=== PATIENT | female | born 1970 | race Caucasian/White ===

== ENCOUNTER 2019-09-16 07:13 | Inpatient (IN) | payer MEDICAID ==
[~2019-09-16 07:13] MED LIST: Bupivacaine 0.5% 50 ML MDV ONE; Lidocaine 1% with EPINEPHrine 1:100,000 50 ML MDV ONE
[2019-09-16] MEDS ORDERED: Naloxone 0.4 MG/ML SDV IVPUSH PRN (07:17)
[2019-09-16] MEDS ORDERED: Naloxone 0.4 MG/ML SDV IV PRN (07:24)
[2019-09-16] MEDS ORDERED: Albuterol/Ipratropium 3.0-0.5 MG/3 ML Neb Soln NEB ONE (07:30)
[2019-09-16] MEDS ORDERED: Acetaminophen 500 MG Tab PO ONE (07:30)
[2019-09-16] MEDS ORDERED: Scopolamine 1.5 MG Transdermal Patch TOP ONE (07:30)
[2019-09-16] MEDS ORDERED: cefOXitin 2 GM in Sodium Chloride 0.9% 50 ML IV ONE (07:30)
[2019-09-16] MEDS ORDERED: Dextrose 5%-Lactated Ringers 1,000 ML IV SCH (07:30)
[2019-09-16] MEDS ORDERED: Dexamethasone 4 MG/ML SDV ONE (08:20)
[2019-09-16] MEDS ORDERED: Rocuronium 50 MG/5 ML Vial ONE ×2 (08:20→10:54)
[2019-09-16] MEDS ORDERED: Ondansetron 4 MG/2 ML SDV ONE (08:20)
[2019-09-16] MEDS ORDERED: Glycopyrrolate 0.2 MG/ML 5 ML MDV ONE (08:20)
[2019-09-16] MEDS ORDERED: Propofol 200 MG/20 ML SDV ONE (08:20)
[2019-09-16] MEDS ORDERED: Neostigmine Methylsulfate 1 MG/ML 5 ML Syringe ONE (08:20)
[2019-09-16] MEDS ORDERED: Succinylcholine 200 MG/10 ML MDV ONE (08:20)
[2019-09-16] MEDS ORDERED: fentaNYL 250 MCG/5 ML SDV ONE ×2 (08:21→09:51)
[2019-09-16] MEDS ORDERED: levETIRAcetam 250 MG Tab PO ONE (08:30)
[2019-09-16] MEDS ORDERED: Magnesium Sulfate 3.5 GM in Sodium Chloride 0.9% 100 ML IV SCH (09:00)
[2019-09-16] MEDS ORDERED: Lactated Ringers 1,000 ML ONE (09:00)
[2019-09-16] MEDS ORDERED: Ketamine 50 MG in Sodium Chloride 0.9% 49.5 ML IV SCH (09:00)
[2019-09-16] MEDS ORDERED: Ketamine 500 MG/5 ML MDV IV SCH (09:00)
[2019-09-16] MEDS ORDERED: SODIUM CHLORIDE 0.9% IV ONE (09:30)
[2019-09-16] MEDS ORDERED: MAGNESIUM SULFATE IV ONE (09:30)
[2019-09-16] MEDS ORDERED: Meropenem 500 MG SDV ONE (09:49)
[2019-09-16] MEDS: HYDROmorphone/Normal Saline 15 MG/30 ML PCA IV PRN (12:28)
[2019-09-16] MEDS ORDERED: hydrOXYzine HCL 100 MG/2 ML SDV IM ONE (12:44)
[2019-09-16] MEDS ORDERED: Cyclobenzaprine 10 MG Tab PO PRN ×2 (13:56→14:13)
[2019-09-16] MEDS ORDERED: Albuterol/Ipratropium 3.0-0.5 MG/3 ML Neb Soln INH PRN (14:13)
[2019-09-16] MEDS ORDERED: Calcium Gluconate 10% 1 GM/10 ML SDV IVPUSH PRN (14:13)
[2019-09-16] MEDS ORDERED: SCOPOLAMINE PATCH CHECK TOP SCH (14:13)
[2019-09-16] MEDS ORDERED: Ondansetron 4 MG/2 ML SDV IVPUSH PRN (14:13)
[2019-09-16] MEDS ORDERED: Acetaminophen 500 MG Tab PO PRN (14:13)
[2019-09-16] MEDS ORDERED: diphenhydrAMINE 50 MG/ML SDV IVPUSH PRN (14:13)
[2019-09-16] MEDS ORDERED: Labetalol 20 MG/4 ML Syringe IVPUSH PRN (14:13)
[2019-09-16] MEDS ORDERED: hydrOXYzine HCL 100 MG/2 ML SDV IM PRN (14:13)
[2019-09-16] MEDS ORDERED: Metoclopramide 10 MG/2 ML SDV IVPUSH PRN (14:13)
[2019-09-16] MEDS ORDERED: MVI, Adult with Vitamin K 10 ML, Thiamine 200 MG, Chromium/Copper/Mang/Selen/Zn 1 ML in... IV SCH ×4 (16:00)
[2019-09-16] MEDS ORDERED: Lactated Ringers 500 ML IV ONE (16:06)
[2019-09-16] MEDS: Albuterol/Ipratropium 3.0-0.5 MG/3 ML Neb Soln INH SCH ×2 (16:10→20:34)
[2019-09-16] MEDS: Tranexamic Acid 1,000 MG in Sodium Chloride 0.9% 50 ML IV SCH ×2 (16:39→19:21)
[2019-09-16] MEDS: Acetaminophen 500 MG Tab PO SCH (16:57)
[2019-09-16] MEDS ORDERED: Pantoprazole 40 MG Vial IVPUSH SCH (18:00)
[2019-09-16] MEDS: cefOXitin 2 GM in Sodium Chloride 0.9% 50 ML IV SCH (18:23)
[2019-09-16] MEDS ORDERED: Heparin Sodium 5,000 Units/ML Vial SUBCUT SCH (20:00)
[2019-09-16] MEDS: Gabapentin 250 MG/5 ML Solution ML 470 ML Bottle PO SCH (20:34)
[2019-09-16] MEDS: levETIRAcetam 250 MG Tab PO SCH (20:34)
[2019-09-16] MEDS: Dextrose 5%-Lactated Ringers 1,000 ML IV SCH (23:30)
[2019-09-17] MEDS: Acetaminophen 500 MG Tab PO SCH ×4 (00:27→23:36)
[2019-09-17] MEDS: cefOXitin 2 GM in Sodium Chloride 0.9% 50 ML IV SCH ×5 (00:27→23:37)
[2019-09-17] MEDS ORDERED: Iopamidol 612 MG/ML 50 ML SDV PO ONE (04:24)
[2019-09-17] MEDS: Dextrose 5%-Lactated Ringers 1,000 ML IV SCH ×3 (05:12→11:11)
[2019-09-17] MEDS: Levothyroxine 100 MCG Tab PO SCH (08:26)
[2019-09-17] MEDS: Albuterol/Ipratropium 3.0-0.5 MG/3 ML Neb Soln INH SCH ×4 (08:26→21:16)
[2019-09-17] MEDS: levETIRAcetam 250 MG Tab PO SCH ×2 (08:29→21:14)
[2019-09-17] MEDS: Celecoxib 200 MG Cap PO SCH ×2 (08:29→21:14)
[2019-09-17] MEDS: Gabapentin 250 MG/5 ML Solution ML 470 ML Bottle PO SCH ×3 (08:35→21:14)
[2019-09-17] MEDS ORDERED: Pantoprazole 40 MG Vial IVPUSH SCH (09:00)
[2019-09-17] MEDS ORDERED: SODIUM FERRIC GLUCONATE CMPLEX IV ONE (10:00)
[2019-09-17] MEDS ORDERED: Sodium Ferric Gluconate Cmplex 250 MG in Sodium Chloride 0.9% 100 ML IV SCH (10:00)
[2019-09-17] MEDS ORDERED: SODIUM CHLORIDE 0.9% IV ONE (10:00)
[2019-09-17] MEDS ORDERED: Lactated Ringers 500 ML IV ONE (13:00)
[2019-09-17] MEDS: HYDROmorphone/Normal Saline 15 MG/30 ML PCA IV PRN (14:38)
[2019-09-17] MEDS: Pantoprazole 40 MG Delayed-Release Granules 1 Packet PO SCH (15:42)
[2019-09-17] MEDS: MVI, Adult with Vitamin K 10 ML, Thiamine 200 MG, Chromium/Copper/Mang/Selen/Zn 1 ML in... IV SCH ×4 (15:42)
[2019-09-18] MEDS: Dextrose 5%-Lactated Ringers 1,000 ML IV SCH ×2 (00:28→08:39)
[2019-09-18] MEDS ORDERED: Tranexamic Acid 1,000 MG in Sodium Chloride 0.9% 50 ML IV ONE ×6 (06:38→11:00)
[2019-09-18] MEDS ORDERED: Coagulation Factor VIIa Recombinant (per MCG) 2 MG Vial IVPUSH ONE ×2 (06:39→08:15)
[2019-09-18] MEDS: cefOXitin 2 GM in Sodium Chloride 0.9% 50 ML IV SCH ×2 (06:41→11:35)
[2019-09-18] MEDS: Albuterol/Ipratropium 3.0-0.5 MG/3 ML Neb Soln INH SCH ×4 (07:21→20:48)
[2019-09-18] MEDS: Levothyroxine 100 MCG Tab PO SCH (08:04)
[2019-09-18] MEDS: Acetaminophen 500 MG Tab PO SCH ×2 (08:05→16:22)
[2019-09-18] MEDS: Celecoxib 200 MG Cap PO SCH ×2 (08:05→20:48)
[2019-09-18] MEDS: levETIRAcetam 250 MG Tab PO SCH ×2 (08:06→20:49)
[2019-09-18] MEDS: Cyanocobalamin (Vitamin B12) 1,000 MCG/ML SDV IM SCH (08:06)
[2019-09-18] MEDS: Gabapentin 250 MG/5 ML Solution ML 470 ML Bottle PO SCH ×3 (08:32→20:49)
[2019-09-18] MEDS: oxyCODONE 5 MG Tab PO PRN ×3 (08:34→20:52)
[2019-09-18] MEDS ORDERED: Furosemide 20 MG/2 ML VIAL IV ONE (12:00)
[2019-09-18] MEDS ORDERED: Benzocaine/Cetylpyridinium/Menthol Lozenge MUCMEM PRN (13:06)
--- NOTE | 2019-09-18 13:57 | PN ---
DATE OF SERVICE: 09/17/2019 The patient has been afebrile with stable vital signs. Earlier postoperatively, she appeared to be doing some oozing and received 2 units of packed RBCs. Hemoglobin this morning is 9.6. The vital signs are improving. She is just mildly tachycardic with heart rate around 100 at this point and blood pressures in the 100 to 110 systolic range. This morning, the upper GI x-ray showed as things going through satisfactorily. She will begin a full liquid diet, although I should give her 1 unit of packed RBCs this morning. We can back down the IV rate a little bit later today. Recheck some labs today. Otherwise, maximize activity and work with pulmonary toilet. We will leave the Bob catheter in for today. We will watch her for urine output issues. Bay Johnson MD /[id number]
--- NOTE | 2019-09-18 13:57 | PN ---
DATE OF SERVICE: 09/18/2019 The patient has been afebrile with stable vital signs. Her hemoglobin had dropped to 7.8, sounds this may be fluid shifting. Hemodynamically, she looks much better than she did 24 hours ago with blood pressure 127/63, heart rate in the 80s, O2 sats on 2 L nasal cannula is 94%. The MASSIEL drains are fairly bloody and I suspect she so far had been doing some oozing. Otherwise, we will need to treat that issue with the addition of 2 units of packed RBCs, tranexamic acid 1 g now and then repeat it in 3 hours 2000 mg IV now. Otherwise, we will switch her over to oral pain medication. Recheck some labs in the morning if she is otherwise up and moving quite well. Bay Johnson MD /[id number]
[2019-09-18] MEDS: Pantoprazole 40 MG Delayed-Release Granules 1 Packet PO SCH (16:21)
[2019-09-18] MEDS: MVI, Adult with Vitamin K 10 ML, Thiamine 200 MG, Chromium/Copper/Mang/Selen/Zn 1 ML in... IV SCH ×4 (16:22)
[2019-09-19] MEDS: Acetaminophen 500 MG Tab PO SCH ×4 (00:28→23:16)
[2019-09-19] MEDS: Dextrose 5%-Lactated Ringers 1,000 ML IV SCH ×2 (00:28→00:49)
[2019-09-19] MEDS: oxyCODONE 5 MG Tab PO PRN ×3 (01:28→21:02)
[2019-09-19] MEDS: Melatonin 3 MG Tab PO PRN ×2 (01:29→21:01)
[2019-09-19] MEDS: Albuterol/Ipratropium 3.0-0.5 MG/3 ML Neb Soln INH SCH ×5 (06:59→20:12)
[2019-09-19] MEDS: Levothyroxine 100 MCG Tab PO SCH (07:55)
[2019-09-19] MEDS ORDERED: Furosemide 20 MG/2 ML VIAL IVPUSH ONE (08:00)
[2019-09-19] MEDS ORDERED: Potassium Chloride 10% 20 MEQ/15 ML Soln 15 ML UD Cup PO ONE (08:00)
[2019-09-19] MEDS: Celecoxib 200 MG Cap PO SCH ×3 (08:53→20:12)
[2019-09-19] MEDS: Docusate Sodium 100 MG Cap PO SCH ×3 (08:54→20:12)
[2019-09-19] MEDS: levETIRAcetam 250 MG Tab PO SCH ×3 (08:54→20:13)
[2019-09-19] MEDS: Bisacodyl 5 MG Tab PO SCH ×3 (08:54→20:12)
[2019-09-19] MEDS: Cyanocobalamin (Vitamin B12) 1,000 MCG/ML SDV IM SCH (08:54)
[2019-09-19] MEDS: Gabapentin 250 MG/5 ML Solution ML 470 ML Bottle PO SCH ×4 (09:04→20:13)
[2019-09-19] MEDS ORDERED: Sodium Ferric Gluconate Cmplex 250 MG in Sodium Chloride 0.9% 100 ML IV ONE (10:00)
--- NOTE | 2019-09-19 10:08 | CR ---
UGI Limited HISTORY: Postbariatric surgery FINDINGS: Patient swallowed water-soluble contrast. Upright views of the abdomen show no evidence of extravasation or obstruction. There are surgical drains in the upper abdomen IMPRESSION: Status post bariatric surgery No extravasation or obstruction seen
--- NOTE | 2019-09-19 10:30 | PN ---
DATE OF SERVICE: 09/19/2019 SUBJECTIVE: Ольга received 2 units of packed red blood cells yesterday. Her hemoglobin this morning is 8.4, it is up from 7.8. Potassium is 4.5. Her BNP 530. She is retaining some fluid in her extremities. Pain has been controlled. REVIEW OF SYSTEMS: Remainder of review of systems negative for any pertinent positives and negatives. OBJECTIVE: GENERAL: Ольга is a 48-year-old female. She is alert and orientated. VITAL SIGNS: TPR at 0700, 97.2; 87; 18; blood pressure 121/67. HEENT: Negative. NECK: Supple. HEART: Regular rate and rhythm. LUNGS: Clear. ABDOMEN: Dressing is shadowed. EXTREMITIES: MASSIEL drains x2 are intact. The one MASSIEL drain #2 is draining around the drain site. MASSIEL drain 1 put out 40 and MASSIEL drain put out 20. EXTREMITIES: Revealed trace peripheral edema. ASSESSMENT: Exploratory laparotomy with: 1. Total gastrectomy with Verito-en-Y reconstruction. 2. Removal of intraperitoneal mesh with adherent overlying skin. 3. Drainage of intraabdominal inflammatory fluid collection versus abscess. 4. Small bowel resection. 5. Separate enterostomy to restore small bowel Verito-en-Y anatomy. 6. Excision of large lipoma, mesenteric peritoneal surface, upper abdomen. 7. Repair of recurrent incarcerated incisional hernia. 8. Excision of ulcerated skin with layered closure. POSTOPERATIVE DIAGNOSIS: 1. Mass, anterior stomach, non assessable to endoscopy secondary to Verito-en-Y gastric bypass stricture. 2. Endoscopy secondary to Verito-en-Y gastric bypass surgery. 3. Potentially contaminated intraperitoneal mesh adherent to ulcerated skin and adjacent intraperitoneal inflammatory fluid collection versus abscess. 4. Large (12 cm) lipoma on underside of upper abdominal wall. 5. Probable recurrent intussusception at the jejunojejunostomy component reconstruction. 6. Recurrent incarcerated incisional hernia. 7. Separate ulcerated skin in lower abdomen. 8. Date of surgery: 09/16/2019. Surgeon: aBy Johnson MD. PLAN: 1. Lasix 20 mg IV today. 2. Saline lock IV. 3. KCl 40 mEq liquid 1 time only. 4. Take off Aquacel dressing. 5. May shower. 6. Replace Aquacel dressing. 7. Check CBC, CMP, mag, phos, BNP in a.m. 8. Bisacodyl/dulcolax 10 mg tablets p.o. b.i.d. Stop when the patient has a bowel movement. 9. Colace 100 mg p.o. b.i.d. 10.Good pulmonary toilet. 11.We will evaluate p.r.n. or in a.m. Sheron Estrada PA-C /[id number]
[2019-09-19] MEDS: Pantoprazole 40 MG Delayed-Release Granules 1 Packet PO SCH (16:09)
[2019-09-20] MEDS: oxyCODONE 5 MG Tab PO PRN ×2 (02:43→07:30)
[2019-09-20] MEDS: Levothyroxine 100 MCG Tab PO SCH ×2 (06:18→06:36)
[2019-09-20] MEDS: Albuterol/Ipratropium 3.0-0.5 MG/3 ML Neb Soln INH SCH (07:00)
[2019-09-20] MEDS: Acetaminophen 500 MG Tab PO SCH (07:36)
--- NOTE | 2019-09-21 08:18 | DISCH ---
ADMISSION DIAGNOSES: 1. Abdominal mass. 2. Recurrent incisional hernia with possible infected mass. 3. Verito-en-Y gastric bypass surgery in 2005. 4. Unspecified surgical malabsorption. 5. B12 deficiency. 6. Morbid obesity. 7. Anemia. 8. Clotting disorder. 9. Depression. 10.Polycystic ovary syndrome. 11.Seizure disorder. 12.Iron deficiency anemia. 13.Hypothyroidism. DISCHARGE DIAGNOSES: Exploratory laparotomy with: 1. Total gastrectomy with Verito-en-Y reconstruction. 2. Removal of intraperitoneal mesh with adherent overlying skin. 3. Drainage of intra-abdominal inflammatory fluid collection versus abscess. 4. Small bowel resection. 5. Separate enterostomy to restore small bowel Verito-en-Y anatomy. 6. Excision of large lipoma, mesenteric peritoneal surface, upper abdomen. 7. Repair of recurrent incarcerated incisional hernia. 8. Excision of ulcerated skin with layered closure. POSTOPERATIVE DIAGNOSES: 1. Mass, anterior stomach, non-assessable to endoscopy secondary to Verito-en-Y gastric bypass stricture. 2. Endoscopy secondary to Verito-en-Y gastric bypass surgery. 3. Potentially contaminated intraperitoneal mesh adherent to ulcerated skin and adjacent intraperitoneal inflammatory fluid collection versus abscess. 4. Large 12 cm lipoma on underside of the abdominal wall. 5. Probable recurrent intussusception of the jejunojejunostomy component reconstruction. 6. Recurrent incarcerated incisional hernia. 7. Separate ulcerated skin in lower abdomen. DATE OF SURGERY: 09/16/2019. SURGEON: Bay Johnson MD. HISTORY: Ольга Ocampo is a 48-year-old female who had Verito-en-Y with Bay Johnson MD, in 2005. She was last seen in the clinic following open incisional hernia repair in 2007. She has had no followup since 2007. She had been doing well until, 2 months ago, she noticed a bulge in the midline incision. Pain started last week. She was moving her bowels. No nausea or vomiting. She was seen on 07/28/2019 by Franklin Barraza MD, and was referred to Bay Johnson MD, after she was released from half-way. After preoperative evaluation, review of CT scan and past medical records, discussion of possible risks and complications, the patient wished to proceed with surgical procedure. HOSPITAL COURSE: Ольга was admitted on 09/16/2019 for above operation. Postoperatively, she did have what appeared to be some bleeding and received 2 units of packed red blood cells. Hemoglobin was 9.6 on first postop day. She was mildly tachycardic with heart rate around 100. Blood pressures were 100 to 110 systolically. Upper GI was normal. She was given an additional 1 unit of packed red blood cells. IV was decreased. Bob catheter was left in for accurate intake and output. On postop day 2, 09/18/2019, vital signs were stable. Hemoglobin did drop down to 7.8, thought to be from fluid shifting. She did look stable. Blood pressure was 127/63, heart rate 80s, O2 sats with 2 L of O2 per nasal cannula, 94%. MASSIEL drains remained bright red, and she was given 2 units of packed red blood cells and tranexamic acid 1 g now and repeated 3 hours later. She was switched to oral pain medication. She had been up moving and using her incentive spirometer. On 09/19/2019, postop day 3, hemoglobin was 8.4, potassium 4.5, and BNP of 530. She was retaining some fluid. She was given Lasix, potassium was replaced, and given bowel stimulation. On 09/20/2019, Ольга had a bowel movement. Vital signs were stable. Activity was good. Pain was controlled. Last laboratory tests showed a hemoglobin of 9.2 and hematocrit 28.6. Ольга was able to be discharged to home without any complications. While the patient was in the hospital, she received ferrous gluconate 250 mg IV piggyback on 09/17/2019 and 09/18/2019 for anemia. PHYSICAL EXAMINATION: GENERAL: Ольга Ocampo is a 48-year-old female, alert and orientated. VITAL SIGNS: 5 feet 6.93 inches, weight is 249 pounds. TPR at 0240, 97.3, 90, 16, blood pressure 109/58. HEENT: Negative. NECK: Supple. HEART: Regular rate and rhythm. LUNGS: Clear. ABDOMEN: Aquacel dressings on. MASSIEL drains are intact, but will be removed prior to discharge. EXTREMITIES: Without peripheral edema. DISPOSITION: Discharged to home. CONDITION: Stable and improving. FOLLOWUP APPOINTMENT: With Sheron Estrada PA-C, 09/26/2019 at 10:00 a.m. HOME MEDICATIONS: 1. Celebrex 200 mg oral b.i.d. #28. 2. Flexeril 10 mg q.8 hours p.r.n. muscle spasms, #30. 3. Oxycodone 5 mg every 6 hours p.r.n. pain, #28. To resume home medications Tylenol 650 mg every 8 hours, albuterol-ipratropium, DuoNeb 3 mL 3 times a day as needed, Q-Tussin DM 20 mL every 6 hours p.r.n. cough, levothyroxine 100 mcg before breakfast, melatonin 6 mg oral at bedtime, Keppra 500 mg oral twice daily. DIET: Step 2 gastric bypass diet with no cereal for 2 weeks until 10/01/2019. Drink 8 to 10 glasses of water a day. ACTIVITY: No lifting greater than 10 pounds for 6 weeks. Other activity: Walk inside your home 6 times daily. Driving: Do not drive for 1 week and while on narcotic medications. Shower/bathing: May shower. Keep operative site clean and dry. Take off Aquacel dressing on 09/23/2019. May cover lightly with gauze to prevent lorena from catching on abdominal binder. Wear abdominal binder for 6 weeks if tolerated. Notify provider if any fever, increased pain, drainage, nausea, or vomiting. SPECIAL INSTRUCTION: Use incentive spirometer 10 times every hour while awake for 1 week.
--- NOTE | 2019-09-21 13:59 | OR ---
DATE OF PROCEDURE: 09/16/2019 SURGEON: Bay Johnson MD PREOPERATIVE DIAGNOSES: 1. Mass involving antrum of stomach, which was not accessible to endoscopy, status post Verito-en-Y gastric bypass. 2. Recurrent incarcerated incisional hernia. POSTOPERATIVE DIAGNOSES: 1. Mass involving antrum of stomach, which was not accessible to endoscopy, status post Verito-en-Y gastric bypass. 2. Recurrent incarcerated incisional hernia. 3. Potentially contaminated intraperitoneal mesh adherent to underlying skin and adjacent inflammatory intraperitoneal fluid collection versus abscess. 4. Large (12 cm) lipoma on underside of upper abdominal wall, peritoneal surface. 5. Probable recurrent intussusception at jejunojejunostomy requiring reconstruction. 6. Separate ulcerated skin of lower abdomen. OPERATIVE PROCEDURES: Exploratory laparotomy with: 1. Total gastrectomy with Verito-en-Y reconstruction (53347). 2. Removal of intraperitoneal mesh with adherent overlying skin (37320). 3. Drainage of intraabdominal inflammatory fluid collection versus abscess underlying pre- existing mesh (99811). 4. Small bowel resection (74410). 5. Secondary enteroenterostomy to restore small bowel Verito-en-Y anatomy (15629). 6. Excision of large intraperitoneal lipoma underlying surface of upper abdomen (82203). 7. Repair of incarcerated recurrent incisional hernia (68266). 8. Excision of ulcerated skin of lower abdomen with layered closure (99360, 03591). ANESTHESIA: General. LEAD LAYING AND GLUING MACHINE OPERATOR: Sheron Estrada PA-C INDICATIONS FOR PROCEDURE: This is a 48-year-old presenting with some ongoing upper abdominal pain. A CT scan was obtained, which showed a recurrence of an incisional hernia above the previously placed mesh. This also showed a 2 to 3 cm mass in the antrum of the stomach. This was not accessible by endoscopic means, and rather than subject the patient to laparoscopy followed by a biopsy of the mass via a gastrotomy performed via laparoscopic approach and then potentially having to go back in, if the pathology shows this to be a neoplastic lesion, was reviewed with the patient and we decided to proceed with a simple resection of this area, status post previous Verito-en-Y gastric bypass so that will not affect her underlying GI function to any significant extent. The hernia would be repaired concurrently with mesh, depending on operative findings. A portion of the skin is densely adherent to the underlying mesh and is ulcerated, so this mesh may need to be removed if there appears to be a high likelihood that it is infected. Potential risks of the procedure including bleeding, infection, injury to underlying viscera, and possible leaks from GI tract closures were all reviewed, and the patient wishes to proceed. DETAILS OF PROCEDURE: The patient was taken to the operating room and placed in a supine position. After general endotracheal anesthesia was induced, a Bob catheter was inserted, and the abdomen was prepped. A long elliptical incision, which incorporated the area of ulcerated skin, as well as the area where the mesh was essentially adherent to the skin, was made with a vertical midline orientation. This was carried down through the skin and subcutaneous tissue. This was a polyester mesh, which was highly prone to getting infected, and based on that finding, we opted to remove the mesh. As one approached the right side of the edge of the mesh intraperitoneally and began dissection underneath this, there was some densely adhered omentum to the mesh. During the course of that dissection, a cloudy fluid collection was encountered. This would be either a sterile or a nonsterile abscess, based on the findings. This was drained and cultures were obtained. Remainder of the adhesions were then taken off the mesh with a combination of cautery and lorena and the mesh then removed from the abdominal wall, including adherent overlying skin. During the course of dissection, just above that, the hernia was encountered, and the preperitoneal fat incarcerated within that was returned back into the peritoneal cavity as it was dissected free. Underlying the upper abdomen, there was a peculiar finding of a large lipoma located on the inner peritoneal surface. This was quite large and measured around 12 cm, and this was excised and sent for histologic evaluation. At this point, attention was taken to the gastrectomy. The mass within the antrum could be palpated and was somewhat proximal to the duodenum in the range of 3 cm or so. Initially, the lesser and greater omentum, over the antrum, and then the proximal duodenum were divided with ERMIAS lorena. The duodenum was then divided with a ERMIAS curved black load, roughly 3 cm distal to the pyloric sphincter. The omental structures both in the lesser and greater curvatures were then sequentially divided with ERMIAS lorena and, at that point, there was noted to be dense inflammatory adherence to the previous Verito-en-Y anastomosis. This was partially taken down and reconstructed with lorena, as well some sutures. This anastomosis was essentially at the esophagogastric junction. Once this was completed, the remaining attachments to the total gastrectomy specimen were then taken down and that specimen delivered from the field. Inspection of the small bowel showed, at this point, the patient had a strikingly dilated jejunojejunostomy likely related to some recurrent intussusception. It was felt that this area would be best reconstructed to alleviate any symptoms that are likely associated with that. The 3 components of the jejunojejunostomy were then divided with ERMIAS lorena, as was the underlying mesentery. GI tract continuity was initially started with a [id number] enteroenterostomy between what had been the distal-most biliopancreatic limb to the proximal- most common limb. This was done with internal firing of the ERMIAS 60-mm stapler. Angles of anastomosis and mesenteric defect were approximated with some 3-0 Vicryl stitch and silk stitch respectively. The Verito-en-Y anatomy was then reconstructed with a second anastomosis between the distal-most Verito limb to the small bowel roughly 20 cm distal to the first anastomosis with the same sequence of lorena and mesenteric closure. At this point, no further major problems were noted. The abdomen was irrigated with antibiotic-containing saline solution. Fibrin sealant was placed over the area of the reconstructed Verito-en-Y anastomosis, as well as the duodenal stump. Two Dhiraj-Ledesma drains were placed, one in the left upper quadrant and taken into the area around the anastomosis between esophagogastric junction and the Verito limb; and the second over the area of the duodenal stump. The midline fascia was then approximated with a #2 Vicryl stitch, subcutaneous tissue closed with 2 layers of 3-0 and 4-0 Vicryl stitch deep, and lorena for the skin. Finally, the patient had a separate ulcerated area with a transverse orientation in the lower abdomen. This measured 6 cm and was excised. Some underlying varicose veins were then ligated with 3-0 Vicryl stitch. The incision was then closed with some 4-0 Vicryl stitch deep and then lorena for the skin. Dressing was applied. The patient was taken to the recovery room in satisfactory condition. Physician assistant inventory manager, Sheron Estrada, played an essential role in assisting in this case, helping to position the patient, retract structures as needed, as well as suturing and cutting sutures when indicated. Her presence improved patient safety and decreased the operative time. Bay Johnson MD /[id number]
== END 2019-09-20 10:58 | disposition home or self-care (01) | DRG 327 ==
LOC: JP.SDSSCHI 07:13 → JP.SDS 07:13 → EDSTATUS 07:15 → JP.MS 12:40
PROVIDERS: ADMIT Surgery; ATTEND Surgery
PROC: 0D150ZA Bypass Esophagus to Jejunum, Open Approach (ICD-10-PCS; principal; 2019-09-16)
PROC: 0DT60ZZ Resection of Stomach, Open Approach (ICD-10-PCS; 2019-09-16)
PROC: 0DB80ZZ Excision of Small Intestine, Open Approach (ICD-10-PCS; 2019-09-16)
PROC: 0WQF0ZZ Repair Abdominal Wall, Open Approach (ICD-10-PCS; 2019-09-16)
PROC: 0JB80ZZ Excision of Abdomen Subcutaneous Tissue and Fascia, Open Approach (ICD-10-PCS; 2019-09-16)
PROC: 0JQ80ZZ Repair Abdomen Subcutaneous Tissue and Fascia, Open Approach (ICD-10-PCS; 2019-09-16)
PROC: 0HB7XZZ Excision of Abdomen Skin, External Approach (ICD-10-PCS; 2019-09-16)
PROC: 0WPFXJZ Removal of Synthetic Substitute from Abdominal Wall, External Approach (ICD-10-PCS; 2019-09-16)
PROC: 30233N1 Transfusion of Nonautologous Red Blood Cells into Peripheral Vein, Percutaneous Approach (ICD-10-PCS; 2019-09-17)
DX: K95.89 Other complications of other bariatric procedure (principal); K43.0 Incisional hernia with obstruction, without gangrene; K91.2 Postsurgical malabsorption, not elsewhere classified; Z68.43 Body mass index [BMI] 50.0-59.9, adult; T85.79XA Infection and inflammatory reaction due to other internal prosthetic devices, implants and grafts, initial encounter; K31.89 Other diseases of stomach and duodenum; D17.5 Benign lipomatous neoplasm of intra-abdominal organs; L98.499 Non-pressure chronic ulcer of skin of other sites with unspecified severity; E66.01 Morbid (severe) obesity due to excess calories; G40.909 Epilepsy, unspecified, not intractable, without status epilepticus; D50.9 Iron deficiency anemia, unspecified; E03.9 Hypothyroidism, unspecified; E53.8 Deficiency of other specified B group vitamins; E28.2 Polycystic ovarian syndrome; Z79.82 Long term (current) use of aspirin; Z79.890 Hormone replacement therapy; Z79.899 Other long term (current) drug therapy
CPT/HCPCS: 36415; 36430; 74240; 74240-26; 80053; 81025; 83735; 83880; 84100; 85025; 85027; 86850; 86900; 86901; 86920; 86922; 87070; 87075; 87205; 88304; 88305; 88307; 88313; 88342; 93005; 94640; 94762; A9270-GY; C1781; C9113; J0171; J0330; J0694; J1100; J1170; J1200; J1940; J2020; J2185; J2405; J2704; J2710; J2795; J2916; J3010; J3410; J3411; J3420; J3475; J3490; J7050; J7120; J7121; J7189; J7620-GY; P9016; Q9967

== ENCOUNTER 2019-10-04 12:25 | Inpatient (IN) | payer MEDICAID ==
[2019-10-04] MEDS ORDERED: Albuterol/Ipratropium 3.0-0.5 MG/3 ML Neb Soln NEB ONE (13:05)
[2019-10-04] MEDS ORDERED: fentaNYL 250 MCG/5 ML SDV ONE (13:07)
[2019-10-04] MEDS ORDERED: Glycopyrrolate 0.2 MG/ML 5 ML MDV ONE (13:07)
[2019-10-04] MEDS ORDERED: Propofol 200 MG/20 ML SDV ONE (13:07)
[2019-10-04] MEDS ORDERED: Albuterol/Ipratropium 3.0-0.5 MG/3 ML Neb Soln ONE (13:07)
[2019-10-04] MEDS ORDERED: Dexamethasone 4 MG/ML SDV ONE (13:07)
[2019-10-04] MEDS ORDERED: Ondansetron 4 MG/2 ML SDV ONE (13:07)
[2019-10-04] MEDS ORDERED: Neostigmine Methylsulfate 1 MG/ML 5 ML Syringe ONE (13:07)
[2019-10-04] MEDS ORDERED: Succinylcholine 200 MG/10 ML MDV ONE (13:07)
[2019-10-04] MEDS ORDERED: Rocuronium 50 MG/5 ML Vial ONE (13:07)
[2019-10-04] MEDS ORDERED: Meropenem 500 MG SDV ONE ×2 (13:16→20:01)
[2019-10-04] MEDS ORDERED: Bupivacaine 0.5% 50 ML MDV ONE (13:16)
[2019-10-04] MEDS ORDERED: Lidocaine 1% with EPINEPHrine 1:100,000 50 ML MDV ONE (13:17)
[2019-10-04] MEDS ORDERED: Meropenem 500 MG in Sodium Chloride 0.9% 50 ML IV ONE (13:30)
[2019-10-04] MEDS ORDERED: levETIRAcetam 250 MG Tab PO ONE (13:30)
[2019-10-04] MEDS ORDERED: Dextrose 5%-Lactated Ringers 1,000 ML IV SCH (13:30)
[2019-10-04] MEDS ORDERED: Naloxone 0.4 MG/ML SDV IV PRN (13:42)
[2019-10-04] MEDS ORDERED: Ketamine 500 MG/5 ML MDV IV SCH (14:00)
[2019-10-04] MEDS ORDERED: Ketamine 50 MG in Sodium Chloride 0.9% 49.5 ML IV SCH (14:00)
[2019-10-04] MEDS ORDERED: hydrOXYzine HCL 100 MG/2 ML SDV IM ONE (14:48)
[2019-10-04] MEDS ORDERED: fentaNYL 100 MCG/2 ML SDV IVPUSH ONE (14:48)
[2019-10-04] MEDS ORDERED: Acetaminophen 500 MG Tab PO PRN (15:55)
[2019-10-04] MEDS ORDERED: Metoclopramide 10 MG/2 ML SDV IVPUSH PRN (15:55)
[2019-10-04] MEDS ORDERED: Ondansetron 4 MG/2 ML SDV IVPUSH PRN (15:55)
[2019-10-04] MEDS ORDERED: hydrOXYzine HCL 100 MG/2 ML SDV IM PRN (15:55)
[2019-10-04] MEDS ORDERED: Labetalol 20 MG/4 ML Syringe IVPUSH PRN (15:55)
[2019-10-04] MEDS ORDERED: Albuterol/Ipratropium 3.0-0.5 MG/3 ML Neb Soln INH PRN (15:55)
[2019-10-04] MEDS ORDERED: diphenhydrAMINE 50 MG/ML SDV IVPUSH PRN (15:55)
[2019-10-04] MEDS: HYDROmorphone/Normal Saline 15 MG/30 ML PCA IV PRN (16:06)
[2019-10-04] MEDS: MVI, Adult with Vitamin K 10 ML, Thiamine 200 MG, Chromium/Copper/Mang/Selen/Zn 1 ML in... IV SCH ×4 (17:19)
[2019-10-04] MEDS: Pantoprazole 40 MG Vial IVPUSH SCH (17:20)
[2019-10-04] MEDS: Acetaminophen 500 MG Tab PO SCH ×2 (17:22→23:18)
[2019-10-04] MEDS: Meropenem 500 MG in Sodium Chloride 0.9% 50 ML IV SCH (20:10)
[2019-10-04] MEDS: levETIRAcetam 250 MG Tab PO SCH (21:31)
[2019-10-04] MEDS: Albuterol/Ipratropium 3.0-0.5 MG/3 ML Neb Soln INH SCH (21:31)
[2019-10-04] MEDS: Melatonin 3 MG Tab PO SCH (23:18)
[2019-10-04] MEDS: Dextrose 5%-Lactated Ringers 1,000 ML IV SCH (23:20)
[2019-10-05] MEDS: Meropenem 500 MG in Sodium Chloride 0.9% 50 ML IV SCH ×4 (02:06→19:44)
[2019-10-05] MEDS: Linezolid 600 MG in Premix Bag 1 BAG IV SCH ×2 (02:41→15:05)
[2019-10-05] MEDS ORDERED: Iopamidol 612 MG/ML 50 ML SDV PO STA (02:51)
[2019-10-05] MEDS: Dextrose 5%-Lactated Ringers 1,000 ML IV SCH ×2 (05:44→22:30)
[2019-10-05] MEDS: Albuterol/Ipratropium 3.0-0.5 MG/3 ML Neb Soln INH SCH ×4 (07:46→20:37)
--- NOTE | 2019-10-05 08:14 | PN ---
DATE OF SERVICE: 10/05/2019 Ольга is postoperative day 1. She was transferred from the Emergency Department [place], [place] yesterday. Pain is controlled with the SPRING ASSEMBLER SUPERVISOR. Afebrile. Vital signs stable. Oral intake 600. Urine output via Bob catheter is 950. MASSIEL drains have put out 70, 65, and 65 respectively of a dark red drainage. REVIEW OF SYSTEMS: Remainder of review of systems negative for any pertinent positives and negatives. OBJECTIVE: GENERAL: Ольга Ocampo is a 48-year-old female, alert and orientated. VITAL SIGNS: TPR at 0700; 93.4, 58, 18, blood pressure 124/73. HEENT: Negative. NECK: Supple. HEART: Regular rate and rhythm. LUNGS: Clear. ABDOMEN: Dressings dry and intact. Abdominal binder is on. MASSIEL drains as above. EXTREMITIES: Without peripheral edema. ASSESSMENT: Exploratory laparotomy with drainage of infected hematoma and removal of intraperitoneal mesh for infected intraabdominal hematoma and partially contaminated intraperitoneal mesh. DATE OF SURGERY: 10/04/2019. SURGEON: Bay Johnson MD. PLAN: 1. Schedule and have consent signed for delayed primary closure, Thursday10/07/2019, IV local and TAP block. N.p.o. after midnight. Bay Johnson MD, Surgeon, to have contents schedule with OR. 2. Step 3 gastric bypass diet. 3. Good pulmonary toilet. 4. We will evaluate p.r.n. or in the a.. Sheron Estrada PA-C /[id number]
[2019-10-05] MEDS: Acetaminophen 500 MG Tab PO SCH ×2 (08:26→15:05)
[2019-10-05] MEDS: levETIRAcetam 250 MG Tab PO SCH ×2 (08:26→20:39)
[2019-10-05] MEDS: Levothyroxine 100 MCG Tab PO SCH (08:26)
--- NOTE | 2019-10-05 10:44 | CR ---
UGI Limited HISTORY: Postbariatric surgery FINDINGS: Patient swallowed water-soluble contrast. Upright views of the abdomen show no evidence of extravasation or obstruction. Surgical drains are in place in the epigastric region and left abdomen IMPRESSION: Status post bariatric surgery No extravasation or obstruction seen
--- NOTE | 2019-10-05 10:50 | OR ---
DATE OF PROCEDURE: 10/04/2019 SURGEON: Bay Johnson MD PREOPERATIVE DIAGNOSIS: Draining intraabdominal hematoma. POSTOPERATIVE DIAGNOSES: 1. Infected intraabdominal hematoma with drainage through the abdominal wall. 2. Potentially contaminated intraperitoneal mesh. OPERATIVE PROCEDURES: Exploratory laparotomy with: 1. Drainage of the infected hematoma (51350). 2. Removal of intraperitoneal Vicryl mesh (60268). ANESTHESIA: General. SHOP SERVICE TECHNICIAN: Sheron Estrada PA-C. INDICATIONS FOR PROCEDURE: The patient is recently status post a total gastrectomy with Verito-en-Y reconstruction, presents now with bloody drainage and CT scan showed a large hematoma below the liver and above the area of transverse colon. There is some air within it. The patient does not appear to be overtly septic. We planned to proceed with exploratory laparotomy and drainage of the hematoma and other procedures as indicated. Potential risks of the procedure including bleeding, infection, injury to underlying viscera were reviewed, along with the remote possibility of cardiopulmonary, septic, or hemorrhagic complications leading to , and the patient wishes to proceed. DETAILS OF PROCEDURE: The patient was taken to the operating room and placed in a supine position. After general endotracheal anesthesia was induced, a Bob catheter was inserted, and the abdomen was prepped and draped. The previous upper midline incision was then reopened on its upper 2/3 extent. Within it, there was some blood-tinged seroma which was extending from the intraabdominal location. The cultures of this were obtained. Initial Gram stain on this showed Gram-positive cocci and Gram-negative rods confirming an infected hematoma or intraabdominal abscess. As one entered the abdomen, the area between the transverse colon extending up into the area of the recent gastrojejunostomy and extending over to the duodenal stump hematoma. A liter of hematoma was evacuated. The area over the duodenal stump was intact but that area of hematoma was distinctly malodorous indicating likely to be of infection. Two additional cultures of the intraabdominal hematoma were obtained as well. Once all of the hematoma was evacuated, gentle exploration it was noted there appeared to be no problems with the GI tract and the duodenal stump or the Verito limb or gastrojejunostomy. At this point, the patient was noted to have some Vicryl mesh which was obviously within the contaminated field and this was removed. Following this, the area was irrigated with antibiotic-containing saline solution with both meropenem and Zyvox within it. Three Dhiraj-Ledesma drains were then placed, 2 on the left side and 1 on the right, and the midline fascia was then approximated with #2 Vicryl stitch. The patient did have bilateral transverse abdominis plane blocks placed. The skin and subcutaneous tissues were obviously contaminated and will be left open for the next 2-1/2 days prior to planned delayed primary closure. Physician medical office receptionist assistant, Sheron Estrada, played an essential role in assisting in this case, helping to position the patient, retract structures as needed, as well as suturing and cutting sutures when indicated. Her presence improved the patient's safety and decreased operative time. Bay Johnson MD /[id number]
[2019-10-05] MEDS: MVI, Adult with Vitamin K 10 ML, Thiamine 200 MG, Chromium/Copper/Mang/Selen/Zn 1 ML in... IV SCH ×4 (15:24)
[2019-10-05] MEDS: Pantoprazole 40 MG Vial IVPUSH SCH (17:48)
[2019-10-05] MEDS: Melatonin 3 MG Tab PO SCH (20:39)
[2019-10-05] MEDS: HYDROmorphone/Normal Saline 15 MG/30 ML PCA IV PRN (21:51)
[2019-10-06] MEDS: Acetaminophen 500 MG Tab PO SCH ×3 (00:08→16:17)
[2019-10-06] MEDS: Meropenem 500 MG in Sodium Chloride 0.9% 50 ML IV SCH ×4 (02:43→20:50)
[2019-10-06] MEDS: Linezolid 600 MG in Premix Bag 1 BAG IV SCH ×2 (03:21→16:18)
[2019-10-06] MEDS: Dextrose 5%-Lactated Ringers 1,000 ML IV SCH (05:12)
[2019-10-06] MEDS: Albuterol/Ipratropium 3.0-0.5 MG/3 ML Neb Soln INH SCH ×4 (07:02→20:51)
--- NOTE | 2019-10-06 08:05 | PN ---
DATE OF SERVICE: 10/06/2019 SUBJECTIVE: Ольга reports her pain is controlled. Urine output for 24 hours is 3400. She is on a step 3 diet and had 960 mL in. MASSIEL drains put out 40 mL, 30 mL, and 60 mL respectively of light pink drainage. She has been up ambulating, using her incentive spirometer. REVIEW OF SYSTEMS: Remainder of review of systems negative for any pertinent positives and negatives. OBJECTIVE: GENERAL: Ольга is a pleasant 48-year-old female. VITAL SIGNS: TPR at 0300; 96.7, 65, 16. Blood pressure 109/67. HEENT: Negative. NECK: Supple. HEART: Regular rate and rhythm. LUNGS: Clear. ABDOMEN: Dressings dry and intact. Abdominal binder is on. EXTREMITIES: Without peripheral edema. ASSESSMENT: Exploratory laparotomy with: 1. Drainage of the infected hematoma. 2. Removal of intraperitoneal Vicryl mesh. POSTOPERATIVE DIAGNOSES: 1. Infected intraabdominal hematoma drainage to the abdominal wall. 2. Potentially contaminated intraperitoneal mesh. Date of surgery: 10/04/2019. Surgeon: Bay Johnson MD. PLAN: 1. Decrease IV of D5LR to 100 mL per hour. N.p.o. after midnight for delayed primary closure in a.m. 2. We will evaluate p.r.n. or in a.m. Sheron Estrada PA-C /[id number]
[2019-10-06] MEDS: Levothyroxine 100 MCG Tab PO SCH (08:36)
[2019-10-06] MEDS: levETIRAcetam 250 MG Tab PO SCH ×2 (08:36→20:54)
[2019-10-06] MEDS ORDERED: Cyanocobalamin (Vitamin B12) 1,000 MCG/ML SDV IM ONE (09:00)
[2019-10-06] MEDS: MVI, Adult with Vitamin K 10 ML, Thiamine 200 MG, Chromium/Copper/Mang/Selen/Zn 1 ML in... IV SCH ×8 (14:46→16:20)
[2019-10-06] MEDS: Pantoprazole 40 MG Vial IVPUSH SCH (17:30)
[2019-10-06] MEDS: Melatonin 3 MG Tab PO SCH (20:54)
[2019-10-07] MEDS: Acetaminophen 500 MG Tab PO SCH ×4 (00:08→23:18)
[2019-10-07] MEDS: Meropenem 500 MG in Sodium Chloride 0.9% 50 ML IV SCH ×4 (02:11→22:02)
[2019-10-07] MEDS: Linezolid 600 MG in Premix Bag 1 BAG IV SCH (03:15)
[2019-10-07] MEDS: Dextrose 5%-Lactated Ringers 1,000 ML IV SCH (03:17)
[2019-10-07] MEDS ORDERED: Meropenem 500 MG SDV ONE (06:42)
[2019-10-07] MEDS ORDERED: Lidocaine 1% with EPINEPHrine 1:100,000 50 ML MDV ONE (06:42)
[2019-10-07] MEDS ORDERED: Bupivacaine 0.5% 50 ML MDV ONE (06:42)
[2019-10-07] MEDS ORDERED: fentaNYL 100 MCG/2 ML SDV ONE (07:01)
[2019-10-07] MEDS ORDERED: Propofol 200 MG/20 ML SDV ONE ×4 (07:01→07:55)
[2019-10-07] MEDS: Albuterol/Ipratropium 3.0-0.5 MG/3 ML Neb Soln INH SCH ×4 (07:03→20:41)
--- NOTE | 2019-10-07 08:51 | PN ---
DATE OF SERVICE: 10/07/2019 SUBJECTIVE: Ольга has been afebrile, pain has been controlled, up ambulating, passing flatus, but has not had a bowel movement yet. Oral intake 2660. Urine output 3825 via Bob catheter. MASSIEL drains have been draining 85, 55, and 290 respectively. REVIEW OF SYSTEMS: Remainder of review of systems negative for any pertinent positives and negatives. OBJECTIVE: GENERAL: Ольга Ocampo is a 48-year-old female. She is n.p.o. for delayed primary closure today. VITAL SIGNS: TPR at 0311; 96, 75, 16. Blood pressure 108/63. HEENT: Negative. NECK: Supple. HEART: Regular rate and rhythm. LUNGS: Clear. ABDOMEN: Dressings dry and intact. MASSIEL drains as above. EXTREMITIES: Without peripheral edema. ASSESSMENT: Exploratory laparotomy with: 1. Drainage of infected hematoma. 2. Removal of intraperitoneal Vicryl mesh. POSTOPERATIVE DIAGNOSES: 1. Infected intraabdominal hematoma drainage to the abdominal wall. 2. Potentially contaminated intraperitoneal mesh. Date of surgery: 10/04/2019. Surgeon: Bay Johnson MD. PLAN: 1. Orders to be written after delayed primary closure today. 2. We will evaluate p.r.n. or in a.m. Sheron Estrdaa PA-C /[id number]
[2019-10-07] MEDS: Levothyroxine 100 MCG Tab PO SCH (10:37)
[2019-10-07] MEDS: Bisacodyl 5 MG Tab PO SCH ×2 (10:38→20:41)
[2019-10-07] MEDS: levETIRAcetam 250 MG Tab PO SCH ×2 (10:38→20:41)
[2019-10-07] MEDS: HYDROmorphone 2 MG Tab PO PRN ×3 (10:39→20:28)
[2019-10-07] MEDS: Pantoprazole 40 MG Delayed-Release Granules 1 Packet PO SCH (15:57)
[2019-10-07] MEDS: MVI, Adult with Vitamin K 10 ML, Thiamine 200 MG, Chromium/Copper/Mang/Selen/Zn 1 ML in... IV SCH ×4 (15:58)
[2019-10-07] MEDS: Melatonin 3 MG Tab PO SCH (20:41)
[2019-10-08] MEDS: Dextrose 5%-Lactated Ringers 1,000 ML IV SCH (02:48)
[2019-10-08] MEDS: HYDROmorphone 2 MG Tab PO PRN ×4 (02:51→22:34)
[2019-10-08] MEDS: Meropenem 500 MG in Sodium Chloride 0.9% 50 ML IV SCH ×3 (04:11→21:10)
[2019-10-08] MEDS: Albuterol/Ipratropium 3.0-0.5 MG/3 ML Neb Soln INH SCH ×4 (07:22→20:36)
[2019-10-08] MEDS: Levothyroxine 100 MCG Tab PO SCH (08:27)
[2019-10-08] MEDS: Bisacodyl 5 MG Tab PO SCH ×2 (08:27→20:36)
[2019-10-08] MEDS: levETIRAcetam 250 MG Tab PO SCH ×2 (08:27→20:36)
[2019-10-08] MEDS: Acetaminophen 500 MG Tab PO SCH ×2 (08:28→15:55)
[2019-10-08] MEDS ORDERED: Sodium Chloride 0.9% 1,000 ML IV SCH (09:30)
[2019-10-08] MEDS ORDERED: Dextrose 5%-Lactated Ringers 1,000 ML IV SCH (09:30)
[2019-10-08] MEDS: Magnesium Sulfate/Water 2 GM in Premix Bag 1 BAG IV SCH ×3 (12:41→22:00)
[2019-10-08] MEDS: Pantoprazole 40 MG Delayed-Release Granules 1 Packet PO SCH (15:55)
[2019-10-08] MEDS: Cyclobenzaprine 10 MG Tab PO PRN (20:35)
[2019-10-08] MEDS: Melatonin 3 MG Tab PO SCH (21:10)
[2019-10-09] MEDS: Magnesium Sulfate/Water 2 GM in Premix Bag 1 BAG IV SCH ×4 (00:58→08:00)
[2019-10-09] MEDS: Meropenem 500 MG in Sodium Chloride 0.9% 50 ML IV SCH ×2 (01:10→08:00)
[2019-10-09] MEDS: Acetaminophen 500 MG Tab PO SCH ×2 (01:10→07:55)
[2019-10-09] MEDS: HYDROmorphone 2 MG Tab PO PRN ×2 (04:28→09:49)
[2019-10-09] MEDS: Cyclobenzaprine 10 MG Tab PO PRN (04:28)
[2019-10-09] MEDS: Albuterol/Ipratropium 3.0-0.5 MG/3 ML Neb Soln INH SCH ×2 (07:18→13:03)
[2019-10-09] MEDS: Levothyroxine 100 MCG Tab PO SCH (07:54)
[2019-10-09] MEDS: levETIRAcetam 250 MG Tab PO SCH (08:00)
--- NOTE | 2019-10-10 12:19 | DISCH ---
FINAL DIAGNOSES: 1. Large infected hematoma with spontaneous drainage through abdominal wall. 2. Recent total gastrectomy with Verito-en-Y reconstruction. 3. Bariatric surgery status. 4. History of asthma. 5. History of seizure disorder. 6. Hypomagnesemia. 7. Malnutrition with low albumin. 8. Focal necrosis of the skin, subcutaneous tissue, and fascia within midline incisions. OPERATIVE PROCEDURE: 1. Done on 10/04/2019, exploratory laparotomy with: a. Drainage of infected intraabdominal hematoma. b. Removal of intraperitoneal mesh. 2. Done on 10/07/2019, delayed primary closure with debridement of skin, subcutaneous tissue, and fascia on the incision. SUMMARY: This is a 48-year-old who is recently status post a total gastrectomy with Verito-en- Y reconstruction for a mass identified in the antrum. The patient initially as well following discharge was noted that she did need some transfusions postoperatively with prior hospitalization. She then presented to the emergency room with spontaneous drainage of bloody fluid through the abdominal incision. The CT scan showed a large area of hematoma more or less below the liver and between the transverse colon and mesentery. There were some air bubbles within this. Clinically, she did not appear to be significantly infected or septic per se. On the day of admission, the patient was taken to the operating room and the hematoma evacuated. The hematoma was mildly malodorous. Three sets of cultures were obtained, all of which grew anaerobic Gram-positive brunilda. She has been treated with meropenem throughout the hospitalization which should provide adequate coverage. She had 3 MASSIEL drains that were checked yesterday and none of them had any organisms on the Gram stain, so it appears the infection is likely controlled reasonably well at this point. The abdominal incision is certainly at risk for having to be at least partially opened at some point and we will see the patient back in 4 days to recheck incision and otherwise MASSIEL drains will be removed. MEDICATIONS ON DISCHARGE: Include Dilaudid 2 mg p.o. q.4 hours p.r.n. pain #42; Flexeril 10 mg p.o. q.8 hours p.r.n. muscle spasm #30, refill x1; magnesium oxide 400 mg p.o. daily x30 days; and Tylenol 1000 mg p.o. q.6 hours p.r.n. pain. She will be on her earlier gastric bypass diet and follow up with Dr. Johnson at [facility] on 10/12/2019, at 11 a.m.
--- NOTE | 2019-10-10 13:04 | PN ---
DATE OF SERVICE: 10/08/2019 The patient has been afebrile with stable vital signs. White count is up a little bit at 15,000, but otherwise things look to be fairly stable. Oral intake has been fairly good. She did have after overeating somewhat, but otherwise is feeling good in that regard. The MASSIEL is still a little bit cloudy. We will check some Gram stain and C and S on those, and otherwise, her magnesium and albumin remain low. We will supplement those up until the time of probable discharge tomorrow. Bay Johnson MD /[id number]
== END 2019-10-09 14:18 | disposition home or self-care (01) | DRG 909 ==
LOC: JP.ED 12:25 → JP.SDS 12:59 → JP.MS 14:40 → UNDODISIN 10-09 12:03
PROVIDERS: ADMIT Surgery; ATTEND Surgery
PROC: 0W9F0ZZ Drainage of Abdominal Wall, Open Approach (ICD-10-PCS; principal; 2019-10-04)
PROC: 0WPF0JZ Removal of Synthetic Substitute from Abdominal Wall, Open Approach (ICD-10-PCS; 2019-10-04)
DX: K91.870 Postprocedural hematoma of a digestive system organ or structure following a digestive system procedure (principal); K91.872 Postprocedural seroma of a digestive system organ or structure following a digestive system procedure; D64.9 Anemia, unspecified; F32.9 Major depressive disorder, single episode, unspecified; J45.909 Unspecified asthma, uncomplicated; I10 Essential (primary) hypertension; E66.01 Morbid (severe) obesity due to excess calories; E28.2 Polycystic ovarian syndrome; Z98.890 Other specified postprocedural states; Y83.8 Other surgical procedures as the cause of abnormal reaction of the patient, or of later complication, without mention of misadventure at the time of the procedure; Z87.891 Personal history of nicotine dependence; Z90.49 Acquired absence of other specified parts of digestive tract; Z98.84 Bariatric surgery status; Z79.890 Hormone replacement therapy; Z91.040 Latex allergy status; Z68.38 Body mass index [BMI] 38.0-38.9, adult
CPT/HCPCS: 36415; 74240; 74240-26; 80053; 82728; 83735; 83880; 84100; 84443; 85025; 85027; 86850; 86900; 86901; 87070; 87075; 87077; 87205; 88300; 88304; 94640; 94762; A9270-GY; C9113; J0171; J0330; J1100; J1170; J2020; J2185; J2405; J2704; J2710; J2765; J2795; J3010; J3410; J3411; J3420; J3475; J3490; J7050; J7121; J7620-GY; P9047; Q9967

== ENCOUNTER 2020-06-14 05:55 | Inpatient (IN) | payer MEDICAID ==
[~2020-06-14 05:55] MED LIST changes: +Acetaminophen 500 MG Tab PO ONE; -Bupivacaine 0.5% 50 ML MDV ONE; +Celecoxib 200 MG Cap PO SCH; -Lidocaine 1% with EPINEPHrine 1:100,000 50 ML MDV ONE; +Scopolamine 1.5 MG Transdermal Patch TOP ONE
[2020-06-14] MEDS ORDERED: Dextrose 5%-Lactated Ringers 1,000 ML IV SCH ×2 (06:30→14:15)
[2020-06-14] MEDS ORDERED: Meropenem 500 MG SDV ONE ×2 (06:36→11:21)
[2020-06-14] MEDS ORDERED: Lidocaine 1% with EPINEPHrine 1:100,000 50 ML MDV ONE (06:39)
[2020-06-14] MEDS ORDERED: Bupivacaine 0.5% 50 ML MDV ONE (06:39)
[2020-06-14] MEDS ORDERED: fentaNYL 250 MCG/5 ML SDV ONE ×2 (07:10→09:46)
[2020-06-14] MEDS ORDERED: Propofol 200 MG/20 ML SDV ONE (07:11)
[2020-06-14] MEDS ORDERED: Succinylcholine 200 MG/10 ML MDV ONE (07:11)
[2020-06-14] MEDS ORDERED: Glycopyrrolate 0.2 MG/ML 5 ML MDV ONE (07:11)
[2020-06-14] MEDS ORDERED: Neostigmine Methylsulfate 1 MG/ML 5 ML Syringe ONE (07:11)
[2020-06-14] MEDS ORDERED: Dexamethasone 4 MG/ML SDV ONE (07:11)
[2020-06-14] MEDS ORDERED: Rocuronium 50 MG/5 ML Vial ONE ×2 (07:11→09:46)
[2020-06-14] MEDS ORDERED: Ondansetron 4 MG/2 ML SDV ONE (07:11)
[2020-06-14] MEDS ORDERED: ceFAZolin 2 GM in Premix Bag 1 BAG IV ONE (07:15)
[2020-06-14] MEDS ORDERED: Albuterol/Ipratropium 3.0-0.5 MG/3 ML Neb Soln NEB ONE (07:15)
[2020-06-14] MEDS ORDERED: Naloxone 0.4 MG/ML SDV IVPUSH PRN (07:27)
[2020-06-14] MEDS ORDERED: Ketamine 50 MG in Sodium Chloride 0.9% 49.5 ML IV SCH (08:00)
[2020-06-14] MEDS ORDERED: Ketamine 500 MG/5 ML MDV IV SCH (08:00)
[2020-06-14] MEDS: HYDROmorphone/Normal Saline 15 MG/30 ML PCA IV PRN (08:17)
[2020-06-14] MEDS ORDERED: Lactated Ringers 1,000 ML ONE (10:45)
[2020-06-14] MEDS ORDERED: Mupirocin Oint 22 GM Tube ONE (12:09)
[2020-06-14] MEDS: Linezolid 600 MG in Premix Bag 1 BAG IV SCH (13:03)
[2020-06-14] MEDS ORDERED: hydrOXYzine HCL 100 MG/2 ML SDV IM PRN (14:12)
[2020-06-14] MEDS ORDERED: Ondansetron 4 MG/2 ML SDV IVPUSH PRN (14:13)
[2020-06-14] MEDS ORDERED: Albuterol/Ipratropium 3.0-0.5 MG/3 ML Neb Soln INH PRN (14:25)
[2020-06-14] MEDS: Acetaminophen 500 MG Tab PO SCH ×2 (15:04→20:03)
[2020-06-14] MEDS: Albuterol/Ipratropium 3.0-0.5 MG/3 ML Neb Soln INH SCH ×2 (15:04→19:59)
[2020-06-14] MEDS: VERIFY SCOP PATCH TOP SCH (15:05)
[2020-06-14] MEDS ORDERED: Pantoprazole 40 MG Vial IV SCH (16:00)
[2020-06-14] MEDS: diphenhydrAMINE 50 MG/ML SDV IVPUSH PRN (19:58)
[2020-06-14] MEDS: Melatonin 3 MG Tab PO PRN (20:56)
[2020-06-14] MEDS ORDERED: Celecoxib 200 MG Cap PO SCH (21:00)
[2020-06-15] MEDS: Linezolid 600 MG in Premix Bag 1 BAG IV SCH ×2 (01:18→13:14)
[2020-06-15] MEDS: Acetaminophen 500 MG Tab PO SCH ×4 (03:56→21:32)
[2020-06-15] MEDS ORDERED: Dextrose 5%-Lactated Ringers 1,000 ML IV SCH (07:45)
[2020-06-15] MEDS: Albuterol/Ipratropium 3.0-0.5 MG/3 ML Neb Soln INH SCH ×4 (08:44→21:32)
[2020-06-15] MEDS: Multivitamins with Iron Tab.Chew PO SCH ×2 (09:53→21:32)
[2020-06-15] MEDS: Sertraline 50 MG Tab PO SCH (09:54)
[2020-06-15] MEDS: Cyanocobalamin (Vitamin B12) 1,000 MCG Tab PO SCH (09:54)
[2020-06-15] MEDS: Celecoxib 200 MG Cap PO SCH ×2 (09:54→21:32)
[2020-06-15] MEDS: Levothyroxine 100 MCG Tab PO SCH (09:55)
[2020-06-15] MEDS: Ferrous Sulfate 325 MG Tab PO SCH (09:55)
[2020-06-15] MEDS: Mupirocin Oint 22 GM Tube TOP SCH (09:55)
[2020-06-15] MEDS: VERIFY SCOP PATCH TOP SCH (09:57)
[2020-06-15] MEDS: Zinc (Zinc Gluconate) 50 MG Tab PO SCH (09:58)
[2020-06-15] MEDS: Cyclobenzaprine 10 MG Tab PO PRN ×2 (11:27→21:38)
[2020-06-15] MEDS: Pantoprazole 40 MG Tab.CR PO SCH (15:50)
[2020-06-15] MEDS: HYDROmorphone/Normal Saline 15 MG/30 ML PCA IV PRN (17:08)
[2020-06-15] MEDS: diphenhydrAMINE 50 MG/ML SDV IVPUSH PRN (21:33)
[2020-06-15] MEDS: Melatonin 3 MG Tab PO PRN (21:33)
[2020-06-16] MEDS: Linezolid 600 MG in Premix Bag 1 BAG IV SCH (00:08)
[2020-06-16] MEDS: Acetaminophen 500 MG Tab PO SCH ×4 (03:28→20:47)
[2020-06-16] MEDS: Albuterol/Ipratropium 3.0-0.5 MG/3 ML Neb Soln INH SCH ×4 (07:26→20:46)
[2020-06-16] MEDS ORDERED: Sodium Chloride 0.9% 10 ML Syringe IV PRN (07:27)
[2020-06-16] MEDS: Levothyroxine 100 MCG Tab PO SCH (07:51)
[2020-06-16] MEDS: HYDROmorphone 2 MG Tab PO PRN ×3 (07:51→19:41)
[2020-06-16] MEDS: Mupirocin Oint 22 GM Tube TOP SCH (08:10)
[2020-06-16] MEDS: Ferrous Sulfate 325 MG Tab PO SCH (08:11)
[2020-06-16] MEDS: Celecoxib 200 MG Cap PO SCH ×2 (08:11→20:42)
[2020-06-16] MEDS: Zinc (Zinc Gluconate) 50 MG Tab PO SCH (08:11)
[2020-06-16] MEDS: Multivitamins with Iron Tab.Chew PO SCH ×2 (08:11→20:42)
[2020-06-16] MEDS: Sertraline 50 MG Tab PO SCH (08:11)
[2020-06-16] MEDS: Bisacodyl 5 MG Tab PO SCH ×2 (08:11→20:42)
[2020-06-16] MEDS: Docusate Sodium 100 MG Cap PO SCH ×2 (08:11→20:43)
[2020-06-16] MEDS: Cyanocobalamin (Vitamin B12) 1,000 MCG Tab PO SCH (08:12)
[2020-06-16] MEDS: VERIFY SCOP PATCH TOP SCH (08:12)
[2020-06-16] MEDS: Cyclobenzaprine 10 MG Tab PO PRN ×2 (10:12→20:39)
--- NOTE | 2020-06-16 12:59 | PN ---
DATE OF SERVICE: 06/16/2020 The patient is postop day 2 from the repair of a large incisional hernia and panniculectomy. Clinically she is doing well at this point. I would plan much in way of pain medication. Urine output looks good. The leakage from the drain seems to have stopped, so no additional treatment will be given in that regard. We will switch over to oral pain medication today and begin some bowel stimulation. She maybe ready for discharge home tomorrow. Bay Johnson MD /[id number]
--- NOTE | 2020-06-16 13:18 | PN ---
DATE OF SERVICE: 06/15/2020 The patient has been afebrile with stable vital signs. She had some leaking of air into the MASSIEL drains. We are not able to see any of that this morning. At the junction of the 2 incisions, almost at the T location, she had some drainage overnight that was reinforced with some surgical glue this morning, and we will try to antoine any spots that are leaking anything as far as air and over the next day or two. Otherwise, we will go up to a step 4 diet today. Continue with [employer], and back down on the IV rate. Bob catheter will be coming out. Bay Johnson MD /[id number]
[2020-06-16] MEDS: Pantoprazole 40 MG Tab.CR PO SCH (15:42)
[2020-06-16] MEDS ORDERED: Trolamine Salicylate/Aloe Vera 10% Crm 85 GM Tube TOP PRN (19:51)
[2020-06-16] MEDS: traZODone 50 MG Tab PO SCH (20:46)
[2020-06-17] MEDS: HYDROmorphone 2 MG Tab PO PRN ×3 (01:38→18:20)
[2020-06-17] MEDS: Cyclobenzaprine 10 MG Tab PO PRN ×2 (02:48→19:23)
[2020-06-17] MEDS: Acetaminophen 500 MG Tab PO SCH ×4 (02:50→21:19)
[2020-06-17] MEDS: Albuterol/Ipratropium 3.0-0.5 MG/3 ML Neb Soln INH SCH ×4 (07:19→21:19)
[2020-06-17] MEDS ORDERED: Magnesium Hydroxide 400 MG/5 ML Susp 30 ML Cup PO ONE (07:45)
[2020-06-17] MEDS: Sertraline 50 MG Tab PO SCH (08:41)
[2020-06-17] MEDS: Multivitamins with Iron Tab.Chew PO SCH ×2 (08:41→21:18)
[2020-06-17] MEDS: Docusate Sodium 100 MG Cap PO SCH ×2 (08:41→21:19)
[2020-06-17] MEDS: Celecoxib 200 MG Cap PO SCH ×2 (08:41→21:18)
[2020-06-17] MEDS: Ferrous Sulfate 325 MG Tab PO SCH (08:41)
[2020-06-17] MEDS: Cyanocobalamin (Vitamin B12) 1,000 MCG Tab PO SCH (08:42)
[2020-06-17] MEDS: Levothyroxine 100 MCG Tab PO SCH (08:42)
[2020-06-17] MEDS: Bisacodyl 5 MG Tab PO SCH ×2 (08:42→21:19)
[2020-06-17] MEDS: Mupirocin Oint 22 GM Tube TOP SCH (08:42)
[2020-06-17] MEDS: VERIFY SCOP PATCH TOP SCH (09:38)
[2020-06-17] MEDS: Zinc (Zinc Gluconate) 50 MG Tab PO SCH (09:38)
[2020-06-17] MEDS ORDERED: Magnesium Hydroxide 400 MG/5 ML Susp 30 ML Cup PO PRN (12:00)
--- NOTE | 2020-06-17 12:39 | PN ---
DATE OF SERVICE: 06/17/2020 The patient has been afebrile with stable vital signs. A little bit distended this morning, has not moved her bowels as of yet. We will give some bowel stimulation with Colace, Dulcolax, and some milk of magnesia this morning. She will likely be ready for discharge home tomorrow. The wound is clean, and she is not having any further problems with leakage of air into the MASSIEL . Bay Johnson MD /[id number]
[2020-06-17] MEDS: Pantoprazole 40 MG Tab.CR PO SCH (15:30)
[2020-06-17] MEDS: traZODone 50 MG Tab PO SCH (21:19)
[2020-06-18] MEDS: Acetaminophen 500 MG Tab PO SCH ×3 (03:40→14:55)
[2020-06-18] MEDS: HYDROmorphone 2 MG Tab PO PRN ×3 (03:41→14:54)
[2020-06-18] MEDS: Cyclobenzaprine 10 MG Tab PO PRN ×2 (04:36→11:22)
[2020-06-18] MEDS: Albuterol/Ipratropium 3.0-0.5 MG/3 ML Neb Soln INH SCH ×2 (07:15→11:09)
[2020-06-18] MEDS: Sertraline 50 MG Tab PO SCH (08:29)
[2020-06-18] MEDS: Zinc (Zinc Gluconate) 50 MG Tab PO SCH (08:29)
[2020-06-18] MEDS: Multivitamins with Iron Tab.Chew PO SCH (08:29)
[2020-06-18] MEDS: Ferrous Sulfate 325 MG Tab PO SCH (08:29)
[2020-06-18] MEDS: Cyanocobalamin (Vitamin B12) 1,000 MCG Tab PO SCH (08:29)
[2020-06-18] MEDS: Docusate Sodium 100 MG Cap PO SCH (08:29)
[2020-06-18] MEDS: Celecoxib 200 MG Cap PO SCH (08:29)
[2020-06-18] MEDS: Mupirocin Oint 22 GM Tube TOP SCH (08:30)
[2020-06-18] MEDS: Levothyroxine 100 MCG Tab PO SCH (08:30)
[2020-06-18] MEDS: VERIFY SCOP PATCH TOP SCH (08:33)
[2020-06-18] MEDS: Bisacodyl 5 MG Tab PO SCH (08:33)
--- NOTE | 2020-06-18 09:43 | DISCH ---
ADMISSION DIAGNOSES: 1. Recurrent incarcerated incisional hernia. 2. Peritoneal mass underlying mid abdominal wall. 3. Chronic panniculitis. DISCHARGE DIAGNOSES: Exploratory laparotomy with lysis of adhesions. 1. Repair of recurrent incarcerated incisional hernia with mesh. 2. Excision of intraperitoneal mass, 12 cm. 3. Placement of Vicryl mesh and panniculectomy. DATE OF PROCEDURE: 06/14/2020. SURGEON: Bay Johnson MD. HISTORY: Ольга has had a recurrent incisional hernia and increasing pain symptoms of large pannus. After preoperative evaluation and discussion of risks and complications, she wished to proceed with surgical procedure. HOSPITAL COURSE: Ольга had her surgery on 06/14/2020. She had no operative complications. On postoperative day #1, vital signs were stable. There was some leaking of air into the MASSIEL drains, which has been occurring on and off. She was started on a step-4 diet. [employer] PA[employer]MENTS RECEIVED was continued. On postoperative day 2, vital signs were stable. Urine output looked good. She was changed to oral pain medication and bowel stimulation. On postoperative day 3, she had a bowel movement later in the day after adding some Colace, Dulcolax, and milk of Mag. On postoperative day 4, she was able to be discharged to home with no complications. Vital signs are stable. Intake and output adequate, and pain is controlled. PHYSICAL EXAMINATION: GENERAL: Ольга is a 49-year-old female. VITAL SIGNS: Height 5 feet 7 inches. Weight is 276 pounds. BMI is 43.2. TPR 97.1, 75, 18, and blood pressure 123/76. HEENT: Negative. NECK: Supple. HEART: Regular rate and rhythm. LUNGS: Clear. ABDOMEN: Four MASSIEL drains intact. Incision is in a T formation. Audrey are intact. Abdominal binder has been on. EXTREMITIES: Without peripheral edema. DISPOSITION: Discharged to home. CONDITION: Stable and improving. HOME MEDICATIONS: 1. Dilaudid 2 mg p.o. q.4 hours p.r.n. pain, #42. 2. Flexeril 10 mg p.o. q.6 hours p.r.n. muscle spasms, #30. 3. She is to resume her home medication Tylenol 1000 mg p.o. q.6 hours scheduled. 4. Sertraline 150 mg p.o. daily. 5. Melatonin 6 mg p.o. at bedtime. 6. Magnesium oxide 400 mg daily. 7. Synthroid 100 mcg before breakfast. 8. Vitamin B12 of 2500 mcg p.o. daily. 9. DuoNebs nebs 3 times daily p.r.n.. 10.Zinc 50 mg p.o. daily. 11.Ferrous gluconate 325 mg p.o. daily. 12.Vitamin D2 of 50,000 units p.o. Thursday, Thursday, and Thursday. 13.Tylenol Arthritis 650 mg p.o. q.6 hours p.r.n. pain. 14.Multivitamin one tab p.o. b.i.d. FOLLOWUP: Appointment with Bay Johnson MD, at [facility] 06/27/2020 at 10 a.m. DIET: Usual diet as tolerated. Step-4 gastric bypass diet. Drink 8 to 10 glasses of water a day. ACTIVITY: No lifting over 10 pounds for 6 weeks. OTHER ACTIVITY: 1. Walk 6 times daily inside your home. 2. Shower and bathing: May shower. 3. Wound incision care: a. Keep operative site clean and dry. Put bacitracin around the MASSIEL drain sites and incision. b. Wear abdominal binder. c. Strip, empty, measure, and record MASSIEL drains 4 times a day and bring record of MASSIEL drainage to clinic appointments. 4. Notify provider if any fever, increased pain, swelling, redness, drainage, nausea, vomiting. 5. Use incentive spirometer 10 times every hour while awake for 1 week. /[id number]
--- NOTE | 2020-06-18 10:54 | OR ---
DATE OF PROCEDURE: 06/14/2020 SURGEON: Bay Johnson MD PREOPERATIVE DIAGNOSES: 1. Recurrent incisional hernia. 2. Chronic panniculitis. POSTOPERATIVE DIAGNOSES: 1. Recurrent incarcerated incisional hernia with extensive intraabdominal adhesions. 2. Peritoneal mass underlying midline lower abdominal wall (12 cm). 3. Chronic panniculitis. OPERATIVE PROCEDURES: 1. Exploratory laparotomy with lysis of adhesions: a. Repair of recurrent incarcerated incisional hernia with mesh (05590, 43959). b. Excision of intraperitoneal mass (19751). c. Placement of a Vicryl mesh to limit recurrent adhesion formation between pelvic and abdominal wall and underlying viscera (03724). 2. Panniculectomy (07076). ANESTHESIA: General. INDICATIONS FOR PROCEDURE: This is a 49-year-old female presenting with large recurrent incisional hernia. She previously had some mesh removed from around that area. She also has a chronic panniculitis with some nonhealing ulcers in the pannus, and after preoperative evaluation and discussion, plan is to proceed with repair of the incisional hernia with mesh with current panniculectomy. She is aware that the open areas in the pannus make her somewhat of a high risk for getting a wound infection and potentially involving the mesh, but otherwise without a mesh repair of the hernia, there would be almost certainly a major recurrence. Otherwise, potential risks including bleeding, infection, injury to underlying viscera, or problems with mesh becoming infected or the hernia recurring were all reviewed, and the patient wishes to proceed. DETAILS OF PROCEDURE: The patient was taken to the operating room and placed in a supine position. After general endotracheal anesthesia was induced, a Bob catheter was inserted, and the abdomen prepped and draped. Initially, a broad transversely oriented incision across the lower abdomen was made and carried down through the skin, subcutaneous tissue, and down to the level of the fascia. This was continued to the midline where some midline scar was encountered. Above this, a peritoneal sac was encountered, and this was then opened, and the hernia then extended from roughly the level of the umbilicus up to the area just below the xiphoid. Hernia sac was dissected free from surrounding soft tissues and excised flush with the otherwise intact fascia. During the course of the dissection, some incarcerated omentum and transverse colon were dissected free from the hernia sac and delivered back into the peritoneal cavity. Inferior to the area of herniation where there was otherwise intact fascia, there was a large peritoneal mass. This may be related to some chronic fat necrosis in that area. This measured 12 cm, and this peritoneal base mass on the underside of the abdominal wall was then excised, again measuring 12 cm in maximal dimension. At this point, the remaining attachments to the pannus below the area of the hernia defect were excised flush with the fascia and the pannus, which measured 6 pounds 3 ounces, was delivered from the field. At this point, the hernia site was mapped out, and a ventral hernia ST mesh with a dimension of 34.9 x 27.4 cm was selected at 5 cm intervals around its circumference on the polypropylene side. 2-0 Vicryl sutures were placed to pull up the mesh in a position well away from the fascial defect. Once these were in place, the mesh was soaked in an antibiotic-containing saline solution. A Vicryl mesh was then placed underneath the area of defect and from there down toward the pelvis to limit recurrent adhesion formation and below that some omentum was also then placed, again providing as much barrier to the overlying mesh as possible. The mesh was oriented with long axis in the vertical midline, and using the suture passer pulling through the abdominal wall, the sutures were pulled up and the mesh then secured gently in position, again well away from the fascial defects. The underside of the shelf of the mesh was then tacked to the fascia circumferentially with titanium tacking screws as well. The midline fascia was then approximated with #2 Vicryl stitch. Four Dhiraj-Ledesma drains were then placed through stab wounds above the main incision. There had been a V-shaped incision from the xiphoid downward to remove some of the overlying thin skin above the otherwise transversely oriented panniculectomy. After the drains were then placed, this area was then approximated with 2 layers of 3-0 and 4-0 Vicryl stitch deep and lorena for the skin. The transverse panniculectomy incision was then closed with 2 layers of 3-0 and 4-0 Vicryl stitch deep and lorena for the skin as well. Drains were fixed with some 4-0 Vicryl stitch, and the patient tolerated the procedure well. The patient was taken to the recovery room in satisfactory condition. Bay Johnson MD /[id number]
== END 2020-06-18 16:30 | disposition home or self-care (01) | DRG 354 ==
LOC: JP.SDSSCHI 05:55 → JP.SDS 05:55 → EDSTATUS 08:15 → JP.MS 13:00
PROVIDERS: ADMIT Surgery; ATTEND Surgery
PROC: 0WUF0JZ Supplement Abdominal Wall with Synthetic Substitute, Open Approach (ICD-10-PCS; principal; 2020-06-14)
PROC: 0JB80ZZ Excision of Abdomen Subcutaneous Tissue and Fascia, Open Approach (ICD-10-PCS; 2020-06-14)
PROC: 0DBW0ZZ Excision of Peritoneum, Open Approach (ICD-10-PCS; 2020-06-14)
PROC: 3E0M05Z Introduction of Adhesion Barrier into Peritoneal Cavity, Open Approach (ICD-10-PCS; 2020-06-14)
DX: K43.0 Incisional hernia with obstruction, without gangrene (principal); Z68.41 Body mass index [BMI] 40.0-44.9, adult; M79.3 Panniculitis, unspecified; K66.9 Disorder of peritoneum, unspecified; E03.9 Hypothyroidism, unspecified; D64.9 Anemia, unspecified; G43.909 Migraine, unspecified, not intractable, without status migrainosus; F32.9 Major depressive disorder, single episode, unspecified; I10 Essential (primary) hypertension; E66.01 Morbid (severe) obesity due to excess calories; Z98.84 Bariatric surgery status; Z90.49 Acquired absence of other specified parts of digestive tract; Z79.899 Other long term (current) drug therapy; Z79.890 Hormone replacement therapy; Z98.890 Other specified postprocedural states; Z91.040 Latex allergy status
CPT/HCPCS: 36415; 81025; 82607; 82728; 82746; 94640; 94762; A9270-GY; C1713; C1781; C9113; J0171; J0330; J0690; J1100; J1170; J1200; J2020; J2185; J2405; J2704; J2710; J2795; J3010; J3490; J7060; J7120; J7121; J7620-GY

== ENCOUNTER 2021-11-16 12:32 | Emergency (ER) | payer MEDICAID ==
[2021-11-16] MEDS ORDERED: Sodium Chloride 0.9% 10 ML Syringe FLUSH PRN (14:28)
[2021-11-16] MEDS ORDERED: Sulfamethoxazole/Trimethoprim 10 ML in Dextrose 5% in Water 250 ML IV SCH ×2 (14:30)
[2021-11-16] MEDS ORDERED: Lidocaine 1% with EPINEPHrine 1:100,000 50 ML MDV SUBCUT STA (15:16)
== END 2021-11-16 16:43 | disposition home or self-care (01) ==
LOC: JP.ED 12:32
DX: N73.9 Female pelvic inflammatory disease, unspecified (principal); I50.9 Heart failure, unspecified; J45.909 Unspecified asthma, uncomplicated; E03.9 Hypothyroidism, unspecified; E66.9 Obesity, unspecified; Z68.41 Body mass index [BMI] 40.0-44.9, adult; Z90.49 Acquired absence of other specified parts of digestive tract; Z79.899 Other long term (current) drug therapy; Z91.040 Latex allergy status
CPT/HCPCS: 10060; 36415; 80053; 83605; 85025; 86140; 87070; 87077; 87186; 87205; 96365; 99283; J7060